=== PATIENT | female | born 1995 | race Caucasian/White ===

== ENCOUNTER → 2021-04-02 | Outpatient (CLI) | payer OTHER | LOC: M LABSMTC 10:40 | PROVIDERS: ATTEND Pediatrics | DX: Z20.822 Contact with and (suspected) exposure to COVID-19 (principal) | CPT/HCPCS: C9803; U0003 ==

== ENCOUNTER 2023-02-28 15:41 | Emergency (ER) | payer OTHER ==
[~2023-02-28] VITALS: Ht 175.3 cm; Wt 81.4 kg
[2023-02-28 15:43] VITALS: BP 143/84; TEMP 98.2; O2SAT 99
[2023-02-28] MEDS ORDERED: [UNRECOGNIZED DRUG - CODE] (16:30)
== END 2023-02-28 18:52 | disposition left against medical advice (07) ==
LOC: M ED 15:41
DX: Z53.21 Procedure and treatment not carried out due to patient leaving prior to being seen by health care provider (principal)